=== PATIENT | male | born 1990 | race Caucasian/White ===

== ENCOUNTER 2018-03-06 11:16 | Emergency (ER) | payer OTHER ==
[2018-03-06 11:23] VITALS: BP 128/78; PULSE 75; TEMP 98.4; BMI 29.5
[2018-03-06] MEDS ORDERED: KETOROLAC TROMETHAMINE 60 MG/2 ML VIAL IM ONE (12:28)
--- NOTE | 2018-03-06 12:31 | PDOC ---
History of Present Illness - General Chief Complaint: Chest Pain Stated Complaint: CHEST PAIN Time Seen by Provider: 03/06/18 11:42 - History of Present Illness Initial Comments: 27-year-old male presents for evaluation of left sided chest pain for 2 days without any associated symptoms. States his pain is exacerbated with activity without radiation. No prior problems like this in the past no other associated symptoms such as cough or fever 03/06/18 12:29 Past History - Past Medical History Allergies/Adverse Reactions: Allergies Allergy/AdvReac Type Severity Reaction Status Date / Time No Known Allergies Allergy Verified 03/06/18 11:18 Home Medications: Ambulatory Orders Ibuprofen [Motrin -] 600 mg PO TID #30 tablet 03/06/18 COPD: No - Suicide/Smoking/Psychosocial Hx Smoking History: Never smoked Have you smoked in the past 12 months: No Information on smoking cessation initiated: No Hx Alcohol Use: No Drug/Substance Use Hx: No Substance Use Type: None Review of Systems - Review of Systems Comments:: 03/06/18 12:29 GENERAL/CONSTITUTIONAL: [No fever or chills. No weakness. No weight change.] HEAD, EYES, EARS, NOSE AND THROAT: [No change in vision. No ear pain or discharge. No sore throat.] CARDIOVASCULAR: [+ chest pain no shortness of breath.] RESPIRATORY: [No cough, wheezing, or hemoptysis.] GASTROINTESTINAL: [No nausea, vomiting, diarrhea or constipation. No rectal bleeding.] GENITOURINARY: [No dysuria, frequency, or change in urination.] MUSCULOSKELETAL: [No joint or muscle swelling or pain. No neck or back pain.] SKIN AND BREASTS: [No rash or easy bruising.] NEUROLOGIC: [No headache, vertigo, loss of consciousness, or loss of sensation.] PSYCHIATRIC: [No depression or anxiety.] ENDOCRINE: [No increased thirst. No abnormal weight change.] HEMATOLOGIC/LYMPHATIC: [No anemia, easy bleeding, or history of blood clots.] ALLERGIC/IMMUNOLOGIC: [No hives or skin allergy. No latex allergy.] *Physical Exam - Vital Signs Last Vital Signs Temp Pulse Resp BP Pulse Ox 98.4 F 75 18 128/78 100 03/06/18 11:19 03/06/18 11:19 03/06/18 11:19 03/06/18 11:19 03/06/18 11:19 - Physical Exam Comments: GENERAL: [The patient is awake, alert, and fully oriented, in no acute distress. ] HEAD: [Normal with no signs of trauma.] EYES: [Pupils equal, round and reactive to light, extraocular movements intact, sclera anicteric, conjunctiva clear.] ENT: [Ears normal, nares patent, oropharynx clear without exudates. Moist mucous membranes.] NECK: [Normal range of motion, supple without lymphadenopathy, JVD, or masses.] LUNGS: [Breath sounds equal, clear to auscultation bilaterally. No wheezes, and no crackles.] HEART: [Regular rate and rhythm, normal S1 and S2 without murmur, rub or gallop. ] ABDOMEN: [Soft, nontender, normoactive bowel sounds. No guarding, no rebound. No masses.] EXTREMITIES: [Normal range of motion, no edema. No clubbing or cyanosis. No cords, erythema, or tenderness.] NEUROLOGICAL: [Cranial nerves II through XII grossly intact. Normal speech, normal gait.] PSYCH: [Normal mood, normal affect.] SKIN: [Warm, Dry, normal turgor, no rashes or lesions noted.] 03/06/18 12:30 Medical Decision Making - Medical Decision Making I don't believe this is cardiac etiology. I'll try shot of Toradol sounds more like costochondritis at this point unlikely TX or PE 03/06/18 12:30 03/06/18 12:55 Patient reexamined and improved after Toradol *DC/Admit/Observation/Transfer Diagnosis at time of Disposition: Costochondritis - Discharge Dispostion Disposition: HOME Condition at time of disposition: Decision to Admit order: No - Referrals - Patient Instructions - Post Discharge Activity
[2018-03-06] MEDS ORDERED: KETOROLAC TROMETHAMINE 60 MG/2 ML VIAL ONE (12:32)
--- NOTE | 2018-03-07 21:45 | EKG ---
Test Reason : Blood Pressure : / mmHG Vent. Rate : 076 BPM Atrial Rate : 076 BPM P-R Int : 148 ms QRS Dur : 092 ms QT Int : 356 ms P-R-T Axes : 056 074 060 degrees QTc Int : 400 ms NORMAL SINUS RHYTHM NORMAL ECG NO PREVIOUS ECGS AVAILABLE Confirmed by KEIRY LUGO, CECE ([id number] on 03/07/2018 9:44:50 PM Referred By: Confirmed By:CECE RICCI MD
== END 2018-03-06 13:08 | disposition home or self-care (01) ==
LOC: JERFT 11:16
DX: M94.0 Chondrocostal junction syndrome [Tietze] (principal)
CPT/HCPCS: 93005; 93010; 99281-25

== ENCOUNTER 2023-11-05 09:17 | Emergency (ER) | payer OTHER ==
[2023-11-05 09:26] VITALS: BP 143/44; PULSE 80; RESP 18; TEMP 98.1; BMI 78.2
[2023-11-05] MEDS ORDERED: ACETAMINOPHEN 500 MG TABLET (FP) PO ONE (11:12)
[2023-11-05] MEDS ORDERED: LIDOCAINE 4% PATCH TP ONE ×2 (11:12→11:15)
[2023-11-05] MEDS ORDERED: IBUPROFEN 600 MG TABLET (FP) PO ONE ×2 (11:12→11:16)
[2023-11-05] MEDS ORDERED: ACETAMINOPHEN 500 MG TABLET (FP) ONE (11:16)
[2023-11-05] MEDS ORDERED: LIDOCAINE PATCH REMOVAL MC SCH (22:00)
== END 2023-11-05 12:12 | disposition home or self-care (01) ==
LOC: JER 09:17
DX: R07.81 Pleurodynia (principal); W19.XXXD Unspecified fall, subsequent encounter
CPT/HCPCS: 71046-TC-FY; 71101-TC-RT-FY; 93005; 93010; 99284-25